=== PATIENT | female | born 1940 | race Caucasian/White ===

== ENCOUNTER → 2016-08-24 | Outpatient (CLI) | payer MEDICARE ==
[~2016-08-24] MED LIST: PRIL20CA9 PO; STOO100C PO
[2016-08-24 15:03] LABS: BLOOD, URINE NEG (NEG); GLUCOSE,URINE NEG (NEG); KETONE, URINE NEG (NEG); NITRITE,URINE NEG (NEG); URINE COLOR LIGHT-YELLOW (YELLW/STRAW)
[2016-08-24 15:05] LABS: AUTOMATED NEUTROPHIL # 4.3 TH/MM3 (1.8-7.7); BASOPHIL # 0.1 TH/MM3 (0-0.2); BASOPHIL % 1.1 % (0.0-2.0); EOSINOPHIL # 0.2 TH/MM3 (0-0.4); EOSINOPHIL % 2.4 % (0.0-4.0); HEMATOCRIT 40.4 % (35.0-46.0); HEMO FLAGS DIFF FINAL; LYMPH % 31.8 % (9.0-44.0); LYMPHOCYTE # 2.4 TH/MM3 (1.0-4.8); MEAN CELL VOLUME 87.9 FL (80.0-100.0); MEAN CORPUSCULAR HEMOGLOBIN 29.1 PG (27.0-34.0); MEAN CORPUSCULAR HGB CONC 33.1 % (32.0-36.0); MONO % 6.8 % (0.0-8.0); NEUT % 57.9 % (16.0-70.0); PLATELET COUNT 250 TH/MM3 (150-450); RED BLOOD COUNT 4.59 MIL/MM3 (4.00-5.30); RED CELL DISTRIBUTION WIDTH 15.2 % (11.6-17.2); WHITE BLOOD COUNT 7.4 TH/MM3 (4.0-11.0)
[2016-08-24 15:09] LABS: COMMENT (UR) CULT NOT INDICATED; CULTURE IF INDICATED CULT NOT INDICATED
[2016-08-24 15:23] LABS: ALT (GPT) 22 U/L (10-53); ANION GAP 8 MEQ/L (5-15); AST (GOT) 15 U/L (15-37); BICARBONATE 29.1 MEQ/L (21.0-32.0); BLOOD UREA NITROGEN 9 MG/DL (7-18); CHLORIDE 104 MEQ/L (98-107); GLOMERULAR FILTRATION RATE 70 ML/MIN (>89); GLUCOSE,FASTING 88 MG/DL (74-99); POTASSIUM 3.9 MEQ/L (3.5-5.1); SODIUM (NA) 141 MEQ/L (136-145)
[2016-08-24 15:25] LABS: ALKALINE PHOSPHATASE 86 U/L (45-117); TOTAL BILIRUBIN ADULT 0.4 MG/DL (0.2-1.0)
--- NOTE | 2016-08-25 19:05 | EKG ---
Date Performed: 08/24/2016 Time Performed: 14:42:29 PTAGE: 75 years EKG: Sinus rhythm LOW QRS VOLTAGE IN PRECORDIAL LEADS MODERATE VOLTAGE CRITERIA FOR LVH, CONSIDER NORMAL VARIANT POSSI BLE ANTERIOR MYOCARDIAL INFARCTION, PROBABLY OLD Compared to tracing from 14 years prior, there has b een a shift in the axis, QRS voltage criteria for LVH are new BORDERLINE ECG PREVIOUS TRACING : 04/22/1993 @ 1104 DOCTOR: Omega Valerio Interpretating Date/Time 08/25/2016 19:04:30
== END ==
LOC: CPRE 13:57
PROVIDERS: ATTEND Obstetrics & Gynecology Gynecology
DX: Z01.812 Encounter for preprocedural laboratory examination (principal); Z01.810 Encounter for preprocedural cardiovascular examination; N81.10 Cystocele, unspecified; N18.6 End stage renal disease; R94.31 Abnormal electrocardiogram [ECG] [EKG]
CPT/HCPCS: 36415; 80053; 81001; 85025; 93005

== ENCOUNTER → 2016-08-30 | Day surgery (SDC) | payer MEDICARE ==
--- NOTE | 2016-08-24 15:39 | MH ---
cc: LORAINE UREÑA MD DATE OF ADMISSION: 08/30/2016 1940 REASON FOR ADMISSION Scheduled for admission on 08/30 for anterior posterior repair. HISTORY OF PRESENT ILLNESS The patient is a 74-year-old white female, 4, para 3, status post prior hysterectomy for pelvic organ prolapse and also prior AP repair. She has had issues with pelvic discomfort, pelvic pressure consistent with pelvic organ prolapse. At this point in the office we note she has anterior and posterior compartment prolapse, stage II with leading edge of prolapse at the introitus. The patient has not done very well with conservative measures and has progression of symptomatology and wants to proceed with surgery. PAST MEDICAL HISTORY The patient's medical history is negative for heart, lung, liver disease, hypertension, diabetes or stroke. Positive breast cancer. PAST SURGICAL HISTORY Total vaginal hysterectomy, AP repair. MEDICATIONS None. ALLERGIES None. OBSTETRICAL HISTORY Three deliveries, uncomplicated. GYNECOLOGIC HISTORY No STDs or abnormal Pap smears. Note, chronic pelvic pain. FAMILY HISTORY Noncontributory. SOCIAL HISTORY Does not smoke, use alcohol or drugs. Has good social support. REVIEW OF SYSTEMS Review of systems as above. No chest pain, orthopnea, PND, nausea, fever, chills. No vaginal bleeding or discharge. PHYSICAL EXAMINATION VITAL SIGNS: She is afebrile, vital signs are stable. Blood pressure 120/70, height 5 feet 2 inches, weight 170, BMI is 31.1. GENERAL: The patient is alert and oriented, in no acute distress. No sign of cognitive dysfunction or depression. HEENT: Within normal limits. NECK: Supple. No JVD. CHEST: Clear. HEART: Regular rate and rhythm. ABDOMEN: Soft, nontender. No hepatosplenomegaly. No CVA tenderness. PELVIC EXAM: Exam in the office shows POP-Q score: Aa is 0, Ap is 0. Point C is -2. Total vaginal length is 10. Genital hiatus is 4. Perineal body is 4. Levator strength is 2/5. Sacral nerve reflexes are normal. EXTREMITIES: Normal skin without rashes. NEURO EXAM: Nonfocal. No DVT signs. ASSESSMENT Patient with pelvic organ prolapse primarily anterior and posterior compartment. At this point we discussed risks, benefits and alternatives to the planned procedure including damage to surrounding organs, bleeding, infection, failure of repair, need for catheterization as well as possible de julienne incontinence. Also discussed issues regarding pain and dyspareunia. Patient has made informed choice to proceed. She also has some issue with defecatory dysfunction and this may be remedied by a rectocele repair, but she still is aware that there may also be issues with bowel function problems after surgery. Use DVT prophylaxis with sequential compression device, Ancef 2 grams IV for antibiotic prophylaxis. Anticipate outpatient procedure. MD PEBBLES Mccain/TLL /2:37 PM /3:11 PM
[~2016-08-30] VITALS: Ht 154.9 cm; Wt 80.1 kg
[~2016-08-30] MED LIST changes: +CHLORHEXIDINE GLUCONATE 2 % 1 PACK (2 CLOTHS) TOPICAL PRN; +DO NOT ADM ANY ANTICOAGULANT DRUGS PRN; +FAMOTIDINE 20 MG/2 ML VIAL ONE; +FLUORESCEIN SOD 10% SOLN 500 MG/5 ML AMP ONE; +INSULIN HUMAN REGULAR 1,000 UNITS/10 ML VIAL SQ PRN; +KETOROLAC TROMETHAMINE 10 MG TAB PO PRN; +KETOROLAC TROMETHAMINE 30 MG/ML (IVP) VIAL IV PUSH PRN; +KETOROLAC TROMETHAMINE 60 MG/2 ML (IM) VIAL IM ONE; +LACTATED RINGER'S 1000 ML INJ 1,000 ML IV ONE; +LACTATED RINGER'S 1000 ML IV PRN; +LIDOCAINE 1%/EPINEPHrine 1:100,000 SOLN 20 ML VIAL ONE; +METHYLENE BLUE 10 MG/ML VIAL OTHER ONE; +METOPROLOL TARTRATE 25 MG TAB PO PRN; +MIDAZOLAM HCL 2 MG/2 ML VIAL ONE; +ONDANSETRON HCL 4 MG/2 ML VIAL IV PUSH ONE; +ONDANSETRON HCL 4 MG/2 ML VIAL IV PUSH PRN; +POVIDONE IODINE 5% (ANTISEPSIS KIT) 4 APPLICATIONS EACH NARE PRN; -PRIL20CA9 PO; +PROPOFOL 200 MG/20 ML AMP IV ONE; +SODIUM CHLORID 0.9% 500 ML IV PRN; +ceFAZolin 2 GM PREMIX 50 ML IV ONE; +ceFAZolin 2 GM PREMIX 50 ML ONE
[2016-08-30 11:10] VITALS: TEMP 96.8
[2016-08-30 12:00] VITALS: BP 174/91; PULSE 78; RESP 18; O2SAT 97
--- NOTE | 2016-09-01 11:07 | MP ---
cc: LORAINE UREÑA MD DATE OF SURGERY: 08/30/2016 PREOPERATIVE DIAGNOSES 1. Cystocele. 2. Rectocele. POSTOPERATIVE DIAGNOSES 1. Cystocele, stage 2. 2. Rectocele, stage 2. PROCEDURE 1. Anterior and posterior repair with enterocele repair. 2. Diagnostic cystoscopy. SURGEON Dr. Ureña ANESTHESIA Laryngeal mask. 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 FLUIDS 1000 cc crystalloid. ESTIMATED BLOOD LOSS 20 cc. URINE OUTPUT 200 cc. FINDINGS External genitalia poorly estrogenized. POP-Q score: Aa is +1; Ap is -1; point C is -8; total vaginal length is 10; genital hiatus is 5; perineal body is 6. Following repair Aa is -3; Ap is -3. Cystoscopy shows normal trigone, good coaptation of urethra, ureteral orifices patent x2, dome and base of bladder normal. Rectal exam is normal following repair. SPECIMENS Anterior and posterior vaginal mucosa. COMPLICATIONS None. DISPOSITION Recovery room stable. COUNTS Needle and sponge counts correct. DRAINS Vasquez catheter. PROPHYLAXIS Antibiotic prophylaxis: Ancef 2 grams. DVT prophylaxis: Sequential compression device. Timeout procedure per protocol. SUMMARY OF INDICATION FOR PROCEDURE The patient had symptomatic pelvic organ prolapse anterior and posterior compartment. DETAILS OF PROCEDURE The patient was taken to the operating theatre, identified, prepped and draped in a fashion appropriate for planned procedure. She was in the dorsal lithotomy position with careful attention paid to placement of legs in stirrups to avoid undue stress to sensitive neurovascular structures. Above findings noted. Neurovascular integrity documented. A Vasquez catheter was placed. Methylene blue was instilled into the bladder. The most striking feature was the anterior compartment. This area was infiltrated with epinephrine and lidocaine solution. A midline incision was made from the vaginal cuff to approximately 1 cm from the urethral meatus. There was no spill of methylene blue with dissection. The cystocele was imbricated with delayed absorbable suture in standard fashion. The mucosa was trimmed and closed with a 2-0 Vicryl suture in a running locking fashion. The patient still had some degree of rectocele and she was symptomatic with this so we did repair the posterior compartment. The rectocele was actually more of a mid position. The most distal 3 cm of the vaginal canal were actually reasonably well-supported. We infiltrated with epinephrine with lidocaine solution. We used Metzenbaum scissors to free up the rectum from the vaginal mucosa with one finger in the rectum to give us traction and countertraction. This defect was actually more of an enterocele than a rectocele. This was rectified with delayed absorbable suture. The vaginal mucosa was trimmed and the mucosa was closed in a running locking suture of 2-0 Vicryl. Hemostatic matrix was used to obviate the need for packing. Suture lines were intact and rectal exam was normal following repair. The patient received IV fluorescein dye and performed a cystoscopy was a 17-[place] bridge a 70 degree scope with above findings noted. Ureteral patency documented x2. The patient went to the recovery room in stable condition. MD PEBBLES Mccain/BT /10:53 AM /10:49 AM MTDD
== END | disposition home or self-care (01) ==
LOC: HSDC 07:20
PROVIDERS: ATTEND Obstetrics & Gynecology Gynecology
DX: N81.10 Cystocele, unspecified (principal); N81.6 Rectocele; R32 Unspecified urinary incontinence; G89.29 Other chronic pain
CPT/HCPCS: 00942; 57265; 88302; J0690; J1885; J2250; J2405; J3010; J7120